=== PATIENT | female | born 2000 | race Two or more races ===

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

== ENCOUNTER 2021-02-28 15:15 | Observation (INO) | payer MEDICAID ==
[~2021-02-28] VITALS: Ht 152.4 cm; Wt 67.6 kg
== END 2021-02-28 17:35 | disposition home or self-care (01) ==
LOC: LDRP 15:15
PROVIDERS: ADMIT Obstetrics & Gynecology; ATTEND Obstetrics & Gynecology
DX: O60.03 Preterm labor without delivery, third trimester (principal); O26.893 Other specified pregnancy related conditions, third trimester; R10.30 Lower abdominal pain, unspecified; Z3A.37 37 weeks gestation of pregnancy
CPT/HCPCS: 59025; 76815; 76818; 81002; G0378

== ENCOUNTER 2021-03-11 07:42 | Inpatient (IN) | payer OTHER ==
[~2021-03-11] VITALS: Ht 30.5 cm; Wt 0.5 kg
[2021-03-11] MEDS ORDERED: BUTORPHANOL TARTRATE 2 MG/1 ML VIAL IV PRN ×2 (08:30)
[2021-03-11] MEDS ORDERED: PENICILLIN G POT 5MIL/D5 50ML 50 ML IV ONE (08:30)
[2021-03-11] MEDS ORDERED: WITCH HAZEL-GLYCERIN PAD TOP PRN (08:30)
[2021-03-11] MEDS ORDERED: LACTATED RINGER'S 1,000 ML IV SCH (08:30)
[2021-03-11] MEDS ORDERED: LIDOCAINE 2%HCL (LOCAL ANESTH.) INJ 20ML MDV IJ PRN (08:30)
[2021-03-11] MEDS ORDERED: PHISODERM TOP SOLN 240ML BTL TOP PRN (08:30)
[2021-03-11] MEDS ORDERED: DERMOPLAST 60ML BOTTLE TOP PRN (08:30)
[2021-03-11] MEDS ORDERED: PROMETHAZINE HCL 25 MG/ML 1ML IV PRN (08:30)
[2021-03-11 09:20] LABS: Basophils # (auto) 0.1 10 ^3/uL (0-0.2); Eosinophils # (auto) 0 10 ^3/uL (0-0.8); Hemoglobin 10.3 g/dL (12.2-16.2); Lymphocytes # (auto) 1.9 10 ^3/uL (0.4-5.4); Mean Corpuscular Hemoglobin 24.2 pg (28.0-32.0); Mean Corpuscular Hgb Conc. 31.5 g/dL (32.0-36.0); Mean Corpuscular Volume 76.9 fL (80.0-100.0); Monocytes # (auto) 0.8 10 ^3/uL (0-1.3); Platelet Count (auto) 188 10^3/uL (140-450); Red Cell Distribution Width 14.8 % (11.8-14.3)
[2021-03-11 09:21] LABS: Basophils % (auto) 0.4 % (0.0-2.0); Eosinophils % (auto) 0.2 % (0.0-7.0); Hematocrit 32.7 % (36.0-46.0); Monocytes % (auto) 5.5 % (0.0-12.0); Neutrophils % (auto) 79.9 % (37.0-80.0); Nucleated Red Blood Cells % 0.1 %; Red Blood Cells 4.25 10^6/uL (4.0-5.20); White Blood Cell 13.8 10^3/uL (4.4-10.8)
[2021-03-11] MEDS ORDERED: LACT. RINGERS/OXYTOCIN 20UNITS 500 ML IV ONE ×2 (09:30→10:00)
[2021-03-11] MEDS ORDERED: TERBUTALINE SULFATE 1 MG/ML 1ML VIAL SC ONE (09:30)
[2021-03-11 09:31] LABS: INR 0.93 (0.9-1.15); Partial Thromboplastin Time 25.9 sec (23.0-31.2)
[2021-03-11 09:32] LABS: Urine Bacteria FEW /hpf (None Seen); Urine Blood Negative /uL (Negative); Urine Mucus FEW (None Seen); Urine Specific Gravity 1.018 (1.001-1.035); Urine WBC 1 /hpf (0 - 5)
[2021-03-11 09:38] LABS: Albumin 2.7 g/dL (3.4-5.0); BUN/Creatinine Ratio 14.3; Calcium 8.7 mg/dL (8.5-10.1); Potassium 4.1 mmol/L (3.5-5.1)
[2021-03-11 09:41] LABS: Alcohol, Urine < 3.0 mg/dL (0-10); Amphetamine Screen, Urine NEGATIVE (NEGATIVE); Barbiturate Scree,Urine NEGATIVE (NEGATIVE); Benzodiazephine Screen, Urine NEGATIVE (NEGATIVE); Cannabinoid Screen, Urine NEGATIVE (NEGATIVE); Cocaine Screen, Urine NEGATIVE (NEGATIVE); Opiate Scree,Urine NEGATIVE (NEGATIVE); Phencyclidine Screen, Urine NEGATIVE (NEGATIVE)
[2021-03-11 09:56] LABS: Bilirubin, Total 0.3 mg/dL (0.2-1.0); Total Protein 7.1 g/dL (6.4-8.2)
[2021-03-11] MEDS ORDERED: LIDOCAINE HCL 2 %PF INJ 10ML AMP IJ ONE (10:00)
[2021-03-11] MEDS ORDERED: NALOXONE HCL 0.4 MG/ML VIAL IV ONE (10:00)
[2021-03-11] MEDS ORDERED: LACTATED RINGER'S 500 ML IV ONE (10:00)
[2021-03-11] MEDS ORDERED: fentaNYL CITRATE 100 MCG/2 ML VL IV ONE (10:00)
[2021-03-11] MEDS ORDERED: ePHEDrine SULFATE 50 MG/ML AMP IV ONE (10:00)
[2021-03-11] MEDS ORDERED: ROPIVACAINE HCL 200 ML EPI SCH (10:00)
[2021-03-11] MEDS ORDERED: LACTATED RINGER'S 1,000 ML IV ONE (10:00)
[2021-03-11] MEDS ORDERED: METHYLERGONOVINE MALEATE 0.2 MG/ML AMP IM ONE (11:54)
[2021-03-11] MEDS ORDERED: PENICILLIN G POTASSIUM 2,500,000 UNITS in D5W 5% 50 ML IV SCH (12:30)
[2021-03-11] MEDS: ACETAMINOPHEN 325 MG TAB PO PRN ×2 (15:28→19:29)
[2021-03-11 15:30] VITALS: BP 106/58
[2021-03-11 19:05] VITALS: BP 118/55
[2021-03-11 22:45] VITALS: BP 110/54
[2021-03-12 03:27] VITALS: BP 94/55
[2021-03-12 05:06] LABS: Rubella Antibodies, IgG 2.59 index (Immune >0.99)
[2021-03-12] MEDS: ACETAMINOPHEN 325 MG TAB PO PRN ×2 (06:31→09:53)
[2021-03-12 06:33] VITALS: BP 110/53
[2021-03-12 07:07] LABS: RPR Non Reactive (Non Reactive)
[2021-03-12 11:00] VITALS: BP 99/58
[2021-03-12] MEDS ORDERED: IBUPROFEN 600 MG TAB PO PRN (13:30)
[2021-03-12 15:00] VITALS: BP 100/60
== END 2021-03-12 15:35 | disposition home or self-care (01) | DRG 560 ==
LOC: LDRP 07:42 → OBSVTOIN 08:19 → LDRP 09:02
PROVIDERS: ADMIT Obstetrics & Gynecology; ATTEND Obstetrics & Gynecology
PROC: 10E0XZZ Delivery of Products of Conception, External Approach (ICD-10-PCS; principal; 2021-03-11)
PROC: 3E0R3BZ Introduction of Anesthetic Agent into Spinal Canal, Percutaneous Approach (ICD-10-PCS; 2021-03-11)
PROC: 00HU33Z Insertion of Infusion Device into Spinal Canal, Percutaneous Approach (ICD-10-PCS; 2021-03-11)
DX: O80 Encounter for full-term uncomplicated delivery (principal); Z20.822 Contact with and (suspected) exposure to COVID-19; Z3A.39 39 weeks gestation of pregnancy; Z37.0 Single live birth
CPT/HCPCS: 36415; 59025; 59409; 62282; 76805; 80053; 80307; 81001; 81002; 85025; 85610; 85730; 86592; 86703; 86762; 86850; 86900; 86901; 87340; 87426; 94760; 96360; 96361; 96365; 96366; 96372; 96374; G0378; J2540; J2590; J7060